=== PATIENT | male | born 1955 | race African-American/Black ===

== ENCOUNTER 2019-06-24 14:01 | Emergency (ER) | payer OTHER ==
[~2019-06-24] VITALS: Ht 180.3 cm; Wt 805.0 kg
[2019-06-24] MEDS ORDERED: KETOROLAC 30MG/ML VIAL IV STA (14:51)
[2019-06-24] MEDS ORDERED: ONDANSETRON HCL 4MG/2ML INJ IV STA (14:51)
[2019-06-24] MEDS ORDERED: SODIUM CHLORIDE 0.9% 1,000 ML IV ONE (14:51)
[2019-06-24 15:36] LABS: BASOPHILS % 0.6 % (0.0-2.0); EOSINOPHILS % 1.7 % (0.0-5.0); HEMOGLOBIN. 15.7 g/dL (14.0-18.0); LYMPHOCYTES % 46.9 % (20.0-50.0); MEAN CORPUSCULAR HEMOGLOBIN 31.2 pg (28.0-32.0); MEAN CORPUSCULAR VOLUME 93.6 fL (80.0-94.0); MEAN PLATELET VOLUME 8.4 fl (7.4-10.4); MONOCYTES % 8.8 % (2.0-8.0); PLATELET 180 x1000/uL (130-400); RED BLOOD CELL COUNT 5.02 mill/uL (4.7-6.1); RED CELL DISTRIBUTION WIDTH 15.1 % (11.6-14.6)
[2019-06-24 15:39] LABS: CHLORIDE 107 mEq/L (98-107)
[2019-06-24] MEDS ORDERED: LORAZEPAM 2MG/ML CPJ IV ONE (16:30)
[2019-06-24] MEDS ORDERED: METOCLOPRAMIDE HCL 10MG/2ML VIAL IV ONE (16:30)
[2019-06-24 21:07] VITALS: BP 144/73
== END 2019-06-24 21:16 | disposition short-term general hospital (02) ==
LOC: ER 14:01 → EDBEDREQTM 17:23 → EDBEDREQ 17:23 → ER 21:16 → CANBEDREQ 06-25 02:19
DX: R55 Syncope and collapse (principal); R11.15 Cyclical vomiting syndrome unrelated to migraine; I10 Essential (primary) hypertension; F43.9 Reaction to severe stress, unspecified
CPT/HCPCS: 36415; 70450; 74022; 80053; 83690; 83880; 84484; 85025; 93005; 96374; 96375; 99285; J1885; J2060; J2405; J2765; J7030